=== PATIENT | male | born 1990 | race Caucasian/White ===

== ENCOUNTER 2020-11-07 09:29 | Outpatient (CLI) | payer BC, SELFPAY ==
--- NOTE | ~2020-11-07 | CT_ITS ---
EXAMINATION: CT abdomen pelvis wo con DATE: 11/07/2020 10:03 INDICATION: Calculus of kidney TECHNIQUE: Computed tomography (CT) of the abdomen and pelvis was performed without intravenous contr ast. Automated exposure control and iterative reconstruction technique were employed. Exam dose: 323 .05 mGy-cm total exam DLP. COMPARISON: None. FINDINGS: The lung bases are clear. Normal heart size. No pericardial or pleural effusion. The liver, gallbladder, bile ducts, spleen, pancreas and pancreatic duct appear normal. Normal morphology of the adrenal glands. There are 2 approximately 4 mm nonobstructing lower pole right renal calculi. There is an up to approximately 5 x 7 mm right ureteropelvic junction calculus with attenuation of 60 0 Hounsfield units. There is an approximately 3.7 mm nonobstructing lower pole left renal calculus. There is no left or right ureteral calculus or hydronephrosis of either kidney. The urinary bladder a nd prostate gland and seminal vesicles appear normal. Normal caliber of the abdominal aorta. No intraperitoneal or retroperitoneal or pelvic mass lesion or adenopathy or ascites. Normal appendix. No bowel obstruction, bowel wall thickening, pneumatosis or intraperitoneal free air . There is approximately 12.7 mm sclerotic lesion of the right femoral head but smaller sclerotic lesio n of the left femoral head in addition to scattered sclerotic lesions of the pelvic bones and sacrum. These are likely bone islands. IMPRESSION: Right ureteropelvic approximately 5 x 7 mm calculus Bilateral nonobstructive nephrolithiasis Reviewed, dictated and finalized at [facility]. Reviewed, dictated and finalized at location [facility]. EL ASSEMBLY INSPECTOR
== END 2020-11-07 09:30 | disposition home or self-care (01) ==
PROVIDERS: PCP Family Medicine; Visit Provider Family Medicine
DX: N20.2 Calculus of kidney with calculus of ureter (principal)
CPT/HCPCS: 74176

== ENCOUNTER 2020-12-19 08:39 | Outpatient (CLI) | payer BC, SELFPAY ==
--- NOTE | ~2020-12-19 | XR_ITS ---
XR abdomen/kub 1V DATE: 12/19/2020 08:49 INDICATION: Calcium kidney stone TECHNIQUE: AP projections COMPARISON: 11/07/2020 CT abdomen pelvis FINDINGS: Two calcified calculi overlie the right kidney, one overlies the left kidney. These were p resent on 11/07/2020. No calcified stone is noted overlying the ureters. The psoas shadows are intact. No visceromegaly. There is a moderate amount of feces in the colon; no bowel obstruction is detected. Bone island of left ilium. IMPRESSION: Bilateral calcified kidney stones Reviewed, dictated and finalized at [facility]. Reviewed, dictated and finalized at location [facility]. DING ARCHITECTURAL DESIGNER
== END 2020-12-19 08:40 | disposition home or self-care (01) ==
PROVIDERS: PCP Family Medicine; Visit Provider Urology
DX: N20.0 Calculus of kidney (principal)
CPT/HCPCS: 74018

== ENCOUNTER → 2021-01-20 00:55 | Outpatient (CLI) | payer BC, SELFPAY ==
[2021-01-20 19:08] LABS: SARS-CoV-2 RNA PCR Negative
== END ==
PROVIDERS: PCP Family Medicine; Visit Provider Urology
DX: Z01.812 Encounter for preprocedural laboratory examination (principal); Z20.822 Contact with and (suspected) exposure to COVID-19
CPT/HCPCS: C9803; U0003; U0005

== ENCOUNTER 2021-01-20 08:55 | Outpatient (CLI) | payer BC, SELFPAY ==
[2021-01-20 10:55] LABS: Partial Thromboplastin Time 28.6 SECONDS (22.3-36.8); Prothrombin Time 13.3 Seconds (11.1-14.7)
== END 2021-01-20 08:56 | disposition home or self-care (01) ==
PROVIDERS: PCP Family Medicine; Visit Provider Urology
DX: R31.9 Hematuria, unspecified (principal); Z01.812 Encounter for preprocedural laboratory examination
CPT/HCPCS: 36415; 85610; 85730

== ENCOUNTER 2021-01-23 01:06 | Day surgery (SDC) | payer BC, SELFPAY ==
[2021-01-19 14:04] VITALS: BMI 32.1
[2021-01-23] VITALS (8 sets, daily range): BP systolic 126–140; BP diastolic 71–89; PULSE 77–127; RESP 13–20; TEMP 36.3; O2SAT 96–100
--- NOTE | ~2021-01-23 | XR_ITS ---
EXAMINATION: XR abdomen/kub 1V DATE: 01/23/2021 09:29 INDICATION: Kidney stone. TECHNIQUE: A supine view of the abdomen on 2 radiographs was obtained. COMPARISON: Abdomen radiographs 12/19/2020, CT abdomen and pelvis 11/07/2020 FINDINGS: There are no dilated loops of bowel. There are phleboliths in the pelvis. There are 7 mm an d 3 mm stones in right kidney. There are benign bone islands in the left ilium and proximal femora. IMPRESSION: 1. Right kidney stones. Reviewed, dictated and finalized at location A. CCO PACKER IMPRESSION: 1. Right kidney stones.
[2021-01-23] MEDS: LACTATED RINGERS 1,000 ML 30 ML IV CONT (10:13)
--- NOTE | 2021-01-23 10:25 | WPDANESEPPF ---
Anes - Initial Pre Proc Eval Procedure: Operation Date: 01/23/21 11:30 Proposed Procedures p Right Renal Extracorporeal Shock Wave Lithotripsy - Terrell Luther MD s Flexible Cystoscopy - Terrell Luther MD Date/Time: 01/23/21 10:25 Surgeon: Terrell Luther MD Pre Op Diagnosis: gross hematuria, right kidney stone Patient Data Age: 30 Gender: M Height: 5 ft 11 in Weight: 101.5 kg Last Vital Signs Temp 36.3 C L 01/23/21 10:16 Pulse 127 H 01/23/21 10:16 BP 133/84 01/23/21 10:16 Pulse Ox 100 01/23/21 10:16 Allergies Allergy/AdvReac Type Severity Reaction Status Date / Time peanut Allergy Anaphylaxis Verified 01/20/21 09:23 tree nut Allergy Anaphylaxis Verified 01/20/21 09:25 Home Medications Medication Instructions Recorded Confirmed Type cetirizine [Zyrtec] 10 mg PO DAILY 01/19/21 01/23/21 History Patient hx anesthesia problems: none Family hx anesthesia problems: none PMFSH Past Medical History Medical History BMI greater than 30 Hematuria Renal stones Family History Family History Other Diabetes mellitus Hypertension Social History Social History Smoking status: Never smoker Second hand tobacco smoke exposure: No Alcohol intake: current Drinks per week: 2 Substance use: never Substance use type: does not use Living arrangements: alone Spiritual care concerns: No Anes - Eval Final PreProcedure Day of Procedure 01/23/21 10:25 Patient weight: obese Heart: regular rate and rhythm Lungs: clear to auscultation Airway: Mallampati scale class II Neurological: alert and oriented Last oral intake: >/= 8 hours ASA classification: II Emergent: no Anesthetic plan: proceed Anesthesia type and monitoring: general LMA and standard monitoring Informed Consent: The patient's anesthetic plan and its attendant risks and benefits were discussed with the patient/family/POA. Questions were solicited and answers provided to the satisfaction of the patient/family/POA.
--- NOTE | 2021-01-23 11:19 | WPDHPUPDATE1 ---
History and Physical Update Update Date/Time: 01/23/21 11:19 History and Physical has been reviewed, including an updated exam of the patient. There are NO changes in the patient's condition. Risks, benefits, and alternatives have been discussed and questions answered. Patient agrees to proceed with procedure. Proceed with cystoscopy, ESWL of right renal calculus
[2021-01-23] MEDS: ceFAZolin 2 GM/D5W 50 ML 2 GM/50 ML BAG IVPB (11:53)
--- NOTE | 2021-01-23 12:35 | P.OP_ITS ---
Procedure Note - Detailed Date of procedure: 01/23/21 Pre-op diagnosis: gross hematuria, right kidney stone Post-op diagnosis: same Procedure performed: Flexible cystoscopy, lithotripsy of right renal calculus Description of procedure: Patient is taken the operative suite and correctly identified. Once anesthesia was obtained he was prepped and draped usual sterile fashion. Sixteen Georgian flexible scope was inserted into the urethra. There were no strictures noted. Bladder is inspected in its entirety. Both ureteral orifices normal anatomic position with clear efflux. There are no tumors noted. Patient was then repositioned with the stone localized in both planes. Two thousand five hundred shocks were given to the stone. There appeared to be good fragmentation. He is taken recovery room stable condition will follow up in 7-10 days with a KUB. If he develops any problems he will call so we can deal with appropriately. Anesthesia: GLMA Surgeon: Terrell Luther MD Drains: No Packing: No Pathology: none sent Complications: No immediate complications Condition: stable Disposition: PACU
[2021-01-23] MEDS: fentaNYL CITRATE INJ (*CRX) 100 MCG/2 ML VIAL 25 MCG IV PUSH ×3 (13:08→13:25)
== END 2021-01-23 14:36 | disposition home or self-care (01) ==
PROVIDERS: PCP Family Medicine; Visit Provider Urology
PROC: (CPT 50590; principal; 2021-01-23 11:30)
PROC: 0TJB8ZZ Inspection of Bladder, Via Natural or Artificial Opening Endoscopic (ICD-10-PCS; CPT 52000; 2021-01-23 11:30)
DX: N20.0 Calculus of kidney (principal); E66.9 Obesity, unspecified; Z68.31 Body mass index [BMI] 31.0-31.9, adult
CPT/HCPCS: 50590; 74018; J0690; J1100; J2250; J2405; J2704; J3010; J7120

== ENCOUNTER 2021-02-11 09:13 | Outpatient (CLI) | payer BC, SELFPAY ==
--- NOTE | ~2021-02-11 | XR_ITS ---
XR abdomen/kub 1V 02/11/2021 09:38 Indication: Kidney stones Procedure: KUB Comparison: 01/23/2021 Findings: Bowel gas pattern is nonobstructive. There is a small 2 mm stone in the lower pole of the l eft kidney. No definite right renal stones visualized. There are pelvic phleboliths which are unchang ed. Bowel gas pattern nonobstructive. No acute osseous abnormality. Impression: 1: Left nephrolithiasis. Reviewed, dictated and finalized at location [facility]. Impression: 1: Left nephrolithiasis.
== END 2021-02-11 09:14 | disposition home or self-care (01) ==
PROVIDERS: PCP Family Medicine; Visit Provider Urology
DX: N20.0 Calculus of kidney (principal)
CPT/HCPCS: 74018

== ENCOUNTER 2024-03-26 07:08 | Emergency (ER) | payer BC, SELFPAY ==
--- NOTE | ~2024-03-26 | CT_ITS ---
EXAMINATION: CT abdomen pelvis wo con DATE: 03/26/2024 07:56 INDICATION: Right flank pain. Hematuria. TECHNIQUE: Computed tomography (CT) of the abdomen and pelvis was performed without intravenous contr ast. Automated exposure control and iterative reconstruction technique were employed. The dose-length product was 359.36 mGy-cm. COMPARISON: CT abdomen and pelvis 11/07/2020 FINDINGS: The visualized portions of the lung bases are clear without pneumonia or pleural effusion. The heart size is normal. No pericardial effusion. There is diffuse hepatic steatosis. The gallbladde r, spleen, pancreas, and adrenal glands are normal. There is a 2 mm stone in right kidney. There is m ild right hydronephrosis and hydroureter. There is a 3 mm stone at right ureterovesicular junction. T here are 2 stones in left kidney measuring up to 7 mm. There are no dilated loops of bowel. The appen shahida is normal. There are no pathologically enlarged lymph nodes. There is no free intraperitoneal flu id. There are scattered benign bone islands in the pelvis and proximal femora. IMPRESSION: 1. 3 mm stone at right ureterovesicular junction with mild right hydronephrosis and hydroureter. 2. Bilateral nonobstructing kidney stones. Reviewed, dictated and finalized at location A.
[2024-03-26 07:13] VITALS: BP 126/89; PULSE 110; RESP 20; TEMP 36.4; O2SAT 99
[2024-03-26 07:33] LABS: Basophils Absolute Auto 0.1 K/mm3 (0.0-0.1); Basophils Percent Auto 0.3 % (0.2-1.2); Eosinophils Absolute Auto 0.1 K/mm3 (0-0.3); Eosinophils Percent Auto 0.4 % (0-4.4); Hematocrit 47.3 % (42.0-52.0); Hemoglobin 16.1 g/dL (14.0-18.0); Immature Granulocyte Absolute 0.08 K/mm3 (0.00-0.031); Immature Granulocyte Percent A 0.5 % (0-0.5); Lymphocytes Absolute Auto 2.31 K/mm3 (0.9-3.2); Lymphocytes Percent Auto 14.2 % (18.3-44.2); Mean Corpuscular Hemoglobin 28.6 pg (26-34); Mean Platelet Volume 9.2 fl (7.4-10.4); Monocytes Absolute Auto 1.7 K/mm3 (0.1-0.6); Monocytes Percent Auto 10.5 % (2.6-8.5); Neutrophils Absolute Auto 12.1 K/mm3 (1.3-6.7); Neutrophils Percent Auto 74.1 % (45.5-73.1); Platelet Count Result 342 k/mm3 (150-375); Red Blood Count 5.63 M/mm3 (4.6-6.20); Red Cell Distribution Width 13.2 % (11.5-14.5); White Blood Count 16.3 K/mm3 (4.5-10.0)
--- NOTE | 2024-03-26 07:33 | ED.ABDPAIN ---
HPI - Abdominal Pain General Chief Complaint: Abdominal Pain Stated Complaint: kidney stone Time Seen by Provider: 03/26/24 07:24 History of Present Illness HPI narrative: 33-year-old male present to the emergency department for evaluation for right flank pain. Patient reports his current flank pain started about yesterday. Patient states that started right flank and did have some radiation down to his groin, patient states that this time it is primarily in the right flank. Patient does have prior history ureteral calculi, patient states he has passed approximately 6 stones, the only stone he did not pass spontaneously in the required lithotripsy was a stone back in 2020. Patient did have follow-up with Dr. Luther Related Data Home Medications Medication Instructions Recorded Confirmed fexofenadine 180 mg tablet 180 mg PO DAILY 02/14/23 02/14/23 ([facility] Allergy) Allergies Allergy/AdvReac Type Severity Reaction Status Date / Time peanut Allergy Anaphylaxis Verified 03/26/24 07:09 tree nut Allergy Anaphylaxis Verified 03/26/24 07:09 Review of Systems Review of Systems: All systems reviewed & are unremarkable except as noted in HPI and below PMFSH Past Medical History Medical History (Updated 03/26/24 @ 09:03 by Devin Pelaez MD) BMI greater than 30 Hematuria Nut allergy Renal stones Family History Family History Other Diabetes mellitus Hypertension Social History Social History Smoking status: Never smoker Second hand tobacco smoke exposure: No Alcohol intake: current Drinks per week: 2 Substance use: never Substance use type: does not use Lack of Transportation: No Lack of Food: Never True Current Housing: I Have Housing Concerned About Future Housing: No Difficulty Paying Gas/Electric Bills: No Difficulty Paying for Meds: No Currently Unemployed: No Education: Bachelor's Degree Difficulty w/ Childcare or Family Care: No Living arrangements: alone Spiritual care concerns: No Exam Narrative: APPEARANCE: Uncomfortable appearing upon arrival HEAD: normocephalic, atraumatic. EYES: PERRLA/EOMI, conjunctivae clear. NOSE: Normal no drainage EARS:TMS clear with good light reflex. THROAT: Pharynx clear, no exudate. NECK: Supple. No adenopathy, no masses. RESPIRATORY: Airway patent, respirations nonlabored. Clear to auscultation bilaterally, no rales, rhonchi, wheezing. CARDIOVASCULAR: Regular rate and rhythm without murmurs rubs or gallops. ABDOMINAL: Right CVA tenderness to palpation, no right lower quadrant tenderness to palpation MUSCULOSKELETAL: Moves all extremities. Strength/ROM intact, No edema, No calf tenderness. NEURO: Alert. Cranial nerves II through XII intact. Grossly intact SKIN: Warm, dry. Normal Color Course Course Emergency Course: Patient was diagnosed with ureteral calculi and provided medication for pain control at home and outpatient follow-up with Urology Vital Signs Vital signs: Vital Signs Temperature 97.6 F 03/26/24 07:13 Pulse Rate 110 H 03/26/24 07:13 Respiratory Rate 20 03/26/24 07:13 Blood Pressure 126/89 03/26/24 07:13 Pulse Oximetry 99 03/26/24 07:13 Oxygen Delivery Room Air 03/26/24 07:13 Temperature 97.6 F 03/26/24 07:13 Pulse Rate 94 03/26/24 09:22 Respiratory Rate 18 03/26/24 09:22 Blood Pressure 130/81 03/26/24 09:22 Pulse Oximetry 96 03/26/24 09:22 Oxygen Delivery Room Air 03/26/24 07:13 MDM - Abdominal Pain MDM Narrative Medical decision making narrative: 33-year-old male present to the emergency department for evaluation right flank pain similar to his previous kidney stones. Patient was treated with IV Dilaudid and IV Zofran. Patient did report he felt improved with treatment. Patient is afebrile but does have a leukocytosis of 16.3, this i
[2024-03-26] MEDS: HYDROmorphone HCL INJ (*CRX) 1 MG/ML SYR IV PUSH (07:39)
[2024-03-26] MEDS: ONDANSETRON INJ 4 MG/2 ML VIAL IV PUSH (07:39)
[2024-03-26 07:40] LABS: Appearance Urine Clear (Clear); Bacteria Urine None Seen /hpf; Bilirubin Urine Negative (Negative); Blood Urine 1+ (Negative); Color Urine Yellow (Yellow); Glucose Urine UA Negative (Negative); Ketones Urine Negative (Negative); Leukocyte Esterase Ur Negative LEU/UL (Negative); Nitrate Urine Negative (Negative); Non Pathogenic Casts 0-2; Protein Urine 1+ mg/dL (Negative); Specific Grav Ur 1.029 (1.001-1.035); Squamous Epithelial Cell Urine None Seen /hpf (Few); WBC Urine 0-5 /hpf (0-3); pH Urine 6.5 (5.0-9.0)
[2024-03-26 07:41] LABS: Add Urine Microscopic? YES
[2024-03-26 07:45] LABS: Alanine Aminotransferase 51 U/L (6-50); Albumin Level 5.1 g/dL (3.5-5.1); Alkaline Phosphatase 99 U/L (38-126); Anion Gap 10 mmol/L (4-12); Aspartate Amino Transferase 38 U/L (17-59); Bilirubin,Total 1.1 mg/dL (0.2-1.3); Blood Urea Nitrogen 15 mg/dL (9-20); Calcium 9.9 mg/dL (8.4-10.2); Carbon Dioxide 23 mmol/L (22-30); Chloride 103 mmol/L (98-107); Estimated CRCL calculation 85 ml/min; Estimated Glomerular Filt Rate 59; Glucose 136 mg/dL (65-110); Potassium 3.7 mmol/L (3.4-5.0); Sodium 136 mmol/L (137-145)
[2024-03-26 08:21] VITALS: BP 127/65; PULSE 100; RESP 18; O2SAT 99
[2024-03-26 08:38] LABS: Partial Thromboplastin Time 28.7 Seconds (22.3-36.8)
[2024-03-26] MEDS: TAMSULOSIN HCL 0.4 MG CAPSULE PO (08:38)
[2024-03-26] MEDS: KETOROLAC 15 MG/ML VIAL (*BKC) IV PUSH (08:38)
[2024-03-26] MEDS: HYDROcodone/acetaminophen (*CRX) 5-325 MG TABLET 1 TAB PO (08:38)
[2024-03-26] MEDS: SODIUM CHLORIDE 0.9% IV 1,000 ML 999 ML IV CONT (08:39)
[2024-03-26 09:22] VITALS: BP 130/81; PULSE 94; RESP 18; O2SAT 96
== END 2024-03-26 09:24 | disposition home or self-care (01) ==
PROVIDERS: Emergency Provider Emergency Medicine; PCP Family Medicine
DX: N20.1 Calculus of ureter (principal); Z91.018 Allergy to other foods
CPT/HCPCS: 36415; 74176; 80053; 81001; 85025; 85610; 85730; 96361; 96374; 96375; 99284; A9270; J1170; J1885; J2405; J7030